=== PATIENT | female | born 1995 | race Native Hawaiian/Other Pacific Islander ===

== ENCOUNTER 2016-12-25 23:36 | Emergency (ER) | payer SELFPAY ==
[~2016-12-25] VITALS: Ht 172.7 cm; Wt 60.0 kg
[2016-12-25 23:39] VITALS: BP 137/67; PULSE 100; RESP 20; TEMP 98; O2SAT 98
[2016-12-26] MEDS ORDERED: NYSTAT/DIPHENHY/LIDO MOUTHWASH (Adult) 120ML SWISH-SWAL STA (00:07)
[2016-12-26] MEDS ORDERED: MAGICADU2 SWISH-SWAL (00:08)
[2016-12-26] MEDS ORDERED: PENI500T PO (00:08)
--- NOTE | 2016-12-26 00:13 | PD ---
HPI Chief Complaint: Cold / Flu Symptoms Time Seen by Provider: 00:10 Travel History International Travel<30 days: No Contact w/Intl Traveler<30days: No Traveled to known affect area: No History of Present Illness HPI 21-year-old female presents to emergency department with a 2 day history of subjective fever and chills, headaches, sore throat, swollen glands and general malaise. She denies any nausea vomiting. No abdominal pain or diarrhea. No dysuria or frequency. No rashes or lesions. PFSH Past Medical History Narrative Medical mIGRAINES Tetanus Vaccination: < 5 Years ?: Not Past Surgical History Surgical History: No Previous Surgery Social History Alcohol Use: No Tobacco Use: No Substance Use: No Allergies-Medications (Allergen,Severity, Reaction): Coded Allergies: No Known Allergies (Unverified , 12/25/16) Reported Meds & Prescriptions Reported Meds & Active Scripts Active Magic Mouthwash Adult Liq (Multi-Ingredient Mouthwash/Gargle) 120 Ml Susp 5 Ml SWISH-SWAL Q2HR Each 5mL contains: Nystatin 200,000units, Diphenhydramine 4.25mg, Viscous Lidocaine 10mg, Martínez syrup 0.8 mL Penicillin V Potassium 500 Mg Tab 500 Mg PO Q12HR Review of Systems Except as stated in HPI: all other systems reviewed are Neg Physical Exam Narrative GENERAL: Well-developed, well-nourished in no acute distress. Nontoxic appearing. HEAD: Normocephalic, atraumatic. EYES: Pupils equal round and reactive. Extraocular motions intact. No scleral icterus. No injection or drainage. ENT: TMs clear without erythema. The external auditory canals clear. Nose: clear . Posterior pharynx is erythematous and moist. Positive tonsillar edema but no exudate. Uvula midline. Airway patent. NECK: Trachea midline.Supple, nontender, moves head freely. No central bony tenderness or spasm. Positive cervical and tonsillar adenopathy CARDIOVASCULAR: Regular rate and rhythm without murmurs, gallops, or rubs. RESPIRATORY: Clear to auscultation. Breath sounds equal bilaterally. No wheezes , rales, or rhonchi. GASTROINTESTINAL: Abdomen soft, non-tender, nondistended. No hepato-splenomegaly , or palpable masses. No guarding. EXTREMITIES: No clubbing, cyanosis, or edema. No joint tenderness, effusion, or edema noted. BACK: Nontender without deformity or crepitance. No flank tenderness. Data Data Last Documented VS Vital Signs Date Time Temp Pulse Resp B/P Pulse Ox O2 Delivery O2 Flow Rate FiO2 12/25/16 23:39 98.0 100 20 137/67 98 Orders Amoxicillin (Trimox) (12/26/16 00:15) Ibuprofen (Motrin) (12/26/16 00:15) Noft-Aktj-Zinr Liq (Magic Mouthwash Adul (12/26/16 00:07) MDM Medical Decision Making Medical Screen Exam Complete: Yes Emergency Medical Condition: Yes Medical Record Reviewed: Yes Differential Diagnosis MDM: High Differential diagnoses: Strep throat, viral pharyngitis, mono, peritonsillar abscess, retropharyngeal abscess, Deepak's angina Narrative Course Patient's given amoxicillin 500 mg, Motrin 600 mg, and Magic mouthwash. This is acute pharyngitis Diagnosis Primary Impression: Acute pharyngitis Patient Instructions: General Instructions Additional Instructions: Rest. Force fluids. Saltwater gargles. Tylenol and Advil. Chloraseptic Billingsley Cepastat lozenge. Penicillin and Magic mouthwash Follow-up with a primary care doctor in one week. Return to the ER if any problems. Med/Other Pt SpecificInfo: Prescription(s) given Scripts Srxbxlpu-Bywnpumxvieaneb-Zcebauulx Liq (Magic Mouthwash Adult Liq)120 Ml Susp5 Ml SWISH-SWAL Q2HR #120 ML Each 5mL contains: Nystatin 200,000units, Diphenhydramine 4.25mg, Viscous Lidocaine 10mg, Martínez syrup 0.8 mL Prov:Tramaine Miller MD 12/26/16 Penicillin V Potassium 500 Mg Hcl023 Mg PO Q12HR #20 TAB Prov:Tramaine Miller MD 12/26/16 Disposition: 01 DISCHARGE HOME Condition: Stable Lance Vasquez Dec 26, 2016 00:13
[2016-12-26] MEDS ORDERED: AMOXICILLIN (TRIHYDRATE) 500 MG CAP PO ONE (00:15)
[2016-12-26] MEDS ORDERED: IBUPROFEN 600 MG TAB PO ONE (00:15)
== END 2016-12-26 00:43 | disposition home or self-care (01) ==
LOC: NEPB 23:36
DX: J02.9 Acute pharyngitis, unspecified (principal)
CPT/HCPCS: 99283